=== PATIENT | female | born 1985 | race Caucasian/White ===

== ENCOUNTER → 2017-07-06 | Outpatient (CLI) | payer OTHER ==
[~2017-07-06] MED LIST: CALC500C3; PRENTAB26 PO
== END | disposition home or self-care (01) ==
LOC: C.PAPS 11:23
PROVIDERS: ATTEND Obstetrics & Gynecology
DX: Z12.4 Encounter for screening for malignant neoplasm of cervix (principal); Z86.001 Personal history of in-situ neoplasm of cervix uteri